=== PATIENT | male | born 1935 | race Caucasian/White ===

== ENCOUNTER → 2016-06-07 | Outpatient (CLI) | payer MEDICARE | END | disposition home or self-care (01) | LOC: LAB 16:56 | DX: J20.9 Acute bronchitis, unspecified (principal) ==

== ENCOUNTER 2017-01-26 16:23 | Emergency (ER) | payer OTHER, MEDICARE ==
[~2017-01-26] VITALS: Ht 170.1 cm; Wt 82.1 kg
[2017-01-26] MEDS ORDERED: CEFADROXIL500 M1 PO (16:57)
== END 2017-01-26 17:34 | disposition home or self-care (01) ==
LOC: ED 16:23
DX: L02.412 Cutaneous abscess of left axilla (principal); Z98.890 Other specified postprocedural states; Z91.013 Allergy to seafood